=== PATIENT | male | born 1980 | race African-American/Black ===

== ENCOUNTER 2021-06-16 07:49 | Emergency (ER) | payer SELFPAY ==
[2021-06-16] MEDS ORDERED: Metoclopramide HCl 10 MG TAB ONE (08:30)
[2021-06-16] MEDS ORDERED: Dexamethasone 10 MG/ML VIAL ONE (08:30)
[2021-06-16] MEDS ORDERED: Ketorolac Tromethamine 30 MG/ML VIAL ONE (08:31)
== END 2021-06-16 08:55 | disposition home or self-care (01) ==
LOC: CSHERS 07:49
DX: R51.9 Headache, unspecified (principal)
CPT/HCPCS: 96372; 99283; J1100; J1885